=== PATIENT | female | born 1935 | race Caucasian/White ===

== ENCOUNTER 2017-09-25 11:12 | Inpatient (IN) | payer OTHER, MEDICARE ==
[2017-09-25 12:02] LABS: PLATELET COUNT 307 10^3/uL (150-400)
--- NOTE | 2017-09-25 12:05 | EDPHY ---
H & P Stated Complaint: family reports "confusion" starting 3 days ago Time Seen by Provider: 09/25/17 11:32 HPI/ROS: CHIEF COMPLAINT: Confusion Limitations: Confusion HISTORY OF PRESENT ILLNESS: 82-year-old female presents with confusion. She lives independently in her own apartment and over the last 3 days, her family has noticed gradually increasing confusion. 2 falls in the past 3 days, without apparent injury or pain. She has no complaints and tells me that she feels fine. She has had similar symptoms with prior urinary tract infection. She has been on Cipro for urinary prophylaxis since 2011. No fever and no dysuria. 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 - Physical Exam Exam: General Appearance: Alert, pleasant, smiling Eyes: Pupils equal and round, no conjunctival pallor ENT, Mouth: Mucous membranes moist Neck: Normal inspection Respiratory: Lungs are clear to auscultation Cardiovascular: Regular rate and rhythm Gastrointestinal: Abdomen is soft and nontender Neurological: Alert, oriented to person and place, nonfocal exam Skin: Warm and dry Extremities: Bilateral pedal edema Psychiatric: Mood and affect normal Constitutional: Initial Vital Signs Temperature (C) 36.8 C 09/25/17 11:16 Heart Rate 70 09/25/17 11:16 Respiratory Rate 16 09/25/17 11:16 Blood Pressure 160/61 H 09/25/17 11:16 O2 Sat (%) 94 09/25/17 11:16 O2 Delivery Mode Room Air Allergies/Adverse Reactions: No Known Allergies Allergy (Unverified 05/04/13 21:23) Home Medications: Medication Instructions Recorded Ascorbic Acid [Vitamin C 500 mg 500 mg PO DAILY 09/25/17 (*)] Aspirin EC [Aspirin EC 81 mg (*)] 81 mg PO DAILY 09/25/17 Carvedilol [Coreg (*)] 12.5 mg PO BIDMEAL 09/25/17 Ciprofloxacin HCl [Ciprofloxacin] 500 mg PO DAILY 09/25/17 Ibuprofen/Diphenhydramine Cit 2 each PO HS 09/25/17 [Advil Pm Caplet] Spironolactone [Aldactone 50 MG 50 mg PO DAILY 09/25/17 (RX)] amLODIPine BESYLATE [Amlodipine 5 mg PO DAILY 09/25/17 Besylate] Medical Decision Making - Diagnostics Imaging Results: Imaging Impressions Head CT 09/25/17 11:33 Impression: 1. Mild atrophy. 2. No acute hemorrhage, hydrocephalus, or mass effect. 3. Cerebrovascular atherosclerosis. 4. No definite acute infarct. 5. Moderate microvascular ischemic gliosis. 6. Consider MRI of the brain, if there is continued clinical concern. Findings and recommendations discussed with emergency department physician, Rita Basilio MD at 1249 hours on September 25, 2017. Final report concurs with initial preliminary interpretation. Chest X-Ray 09/25/17 12:50 Impression: 1. Mild cardiomegaly. 2. No definite pulmonary edema or pneumonia. ED Course/Re-evaluation: This patient presents with altered mental status and multiple falls. Evaluation is unremarkable, including laboratory studies, cath urinalysis, CT head and chest x-ray. Discussed with the family, they are unable to safely take her home. ED case management was involved in the patient's disposition. The patient will need to be admitted for senior living placement. Differential Diagnosis: Differential diagnosis includes urinary tract infection, pneumonia, hyponatremia , hypoglycemia, dehydration, CVA - Data Points Laboratory Results: Laboratory Results 09/25/17 11:40 09/25/17 11:40 09/25/17 09/25/17 09/25/17 11:40 11:40 11:40 WBC RBC Hgb Hct Pending MCV MCH MCHC RDW Plt Count MPV Neut % (Auto) Lymph % (Auto) [place] % (Auto) Eos % (Auto) Baso % (Auto) Nucleat RBC Rel Count Absolute Neuts (auto) Absolute Lymphs (auto) Absolute Monos (auto) Absolute Eos (auto) Absolute Basos (auto) Absolute Nucleated RBC Immature Gran % Immature Gran # ESR Pending Sodium Potassium Chloride Carbon Dioxide Anion Gap BUN Creatinine Estimated GFR Glucose Calcium Troponin I Pending C-Reactive Protein Pending Procalcitonin Pending Urine Color YELLOW Urine Appearance CLEAR Urine pH 5.0 (5.0-7.5) Ur Specific [place] 1.013 (1.002-1.030) Urine Protein 2+ H (NEGATIVE) Urine Ketones 1+ H (NEGATIVE) Urine Blood 1+ H (NEGATIVE) Urine Nitrate NEGATIVE (NEGATIVE) Urine Bilirubin NEGATIVE (NEGATIVE) Urine Urobilinogen NEGATIVE EU EU (0.2-1.0) Ur Leukocyte Esterase NEGATIVE (NEGATIVE) Urine RBC 1-3 /hpf /hpf (0-3) Urine WBC 1-3 /hpf /hpf (0-3) Ur Epithelial Cells NONE SEEN /lpf /lpf (NONE-1+) Urine Mucus TRACE /lpf /lpf (NONE-1+) Urine Glucose NEGATIVE (NEGATIVE) 09/25/17 09/25/17 11:40 11:40 WBC 15.39 10^3/uL H 10^3/uL (3.80-9.50) RBC 4.28 10^6/uL 10^6/uL (4.18-5.33) Hgb 13.0 g/dL g/dL (12.6-16.3) Hct 36.9 % L % (38.0-47.0) MCV 86.2 fL fL (81.5-99.8) MCH 30.4 pg pg (27.9-34.1) MCHC 35.2 g/dL g/dL (32.4-36.7) RDW 13.0 % % (11.5-15.2) Plt Count 307 10^3/uL 10^3/uL (150-400) MPV 9.1 fL fL (8.7-11.7) Neut % (Auto) 85.9 % H % (39.3-74.2) Lymph % (Auto) 7.6 % L % (15.0-45.0) Riley % (Auto) 5.7 % % (4.5-13.0) Eos % (Auto) 0.1 % L % (0.6-7.6) Baso % (Auto) 0.2 % L % (0.3-1.7) Nucleat RBC Rel Count 0.0 % % (0.0-0.2) Absolute Neuts (auto) 13.23 10^3/uL H 10^3/uL (1.70-6.50) Absolute Lymphs (auto) 1.17 10^3/uL 10^3/uL (1.00-3.00) Absolute Monos (auto) 0.87 10^3/uL H 10^3/uL (0.30-0.80) Absolute Eos (auto) 0.01 10^3/uL L 10^3/uL (0.03-0.40) Absolute Basos (auto) 0.03 10^3/uL 10^3/uL (0.02-0.10) Absolute Nucleated RBC 0.00 10^3/uL 10^3/uL (0-0.01) Immature Gran % 0.5 % % (0.0-1.1) Immature Gran # 0.08 10^3/uL 10^3/uL (0.00-0.10) ESR Sodium 130 mEq/L L mEq/L (135-145) Potassium 3.6 mEq/L mEq/L (3.3-5.0) Chloride 92 mEq/L L mEq/L (97-110) Carbon Dioxide 26 mEq/l mEq/l (22-31) Anion Gap 12 mEq/L mEq/L (8-16) BUN 16 mg/dL mg/dL (7-23) Creatinine 0.6 mg/dL mg/dL (0.6-1.0) Estimated GFR > 60 Glucose 109 mg/dL H mg/dL (70-100) Calcium 8.8 mg/dL mg/dL (8.5-10.4) Troponin I C-Reactive Protein Procalcitonin Urine Color Urine Appearance Urine pH Ur Specific [place] Urine Protein Urine Ketones Urine Blood Urine Nitrate Urine Bilirubin Urine Urobilinogen Ur Leukocyte Esterase Urine RBC Urine WBC Ur Epithelial Cells Urine Mucus Urine Glucose Departure - Departure Disposition: [facility] Clinical Impression: Confusion, Multiple falls Condition: Fair
[2017-09-25] MEDS ORDERED: ONDANSETRON DISINTEGRATING 4 MG TAB PO PRN (15:12)
[2017-09-25] MEDS ORDERED: ONDANSETRON 4 MG/2 ML VIAL IVP PRN (15:12)
[2017-09-25] MEDS ORDERED: ACETAMINOPHEN 325 MG TAB PO PRN (15:12)
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
--- NOTE | 2017-09-25 16:26 | ASMTLACE ---
KENA Acuity / Level of Answers: Yes Care: Did the patient have an inpatient admission? Comorbidities - select Answers: Congestive heart failure all that apply History of falls Previous myocardial infarction # of Emergency department Answers: 1-2 visits in the last 6 months Score: 10 Date Signed: 09/25/2017 04:25 PM Electronically Signed By:Jolly Carlos RN
--- NOTE | 2017-09-25 16:31 | ASMTCMCOM ---
CM Note CM Note Notes: Pt presented to the ED via EMS after she was found on the floor in her Independent Living apt at [facility] ([phone]) in [place]. Per pt's son, Kenny ([phone]), and her daughter, Nancie Almeida ([phone]), pt has been confused for the past 3 days and has had falls and difficulty walking. Pt has a walker but doesn't use it all the time. Pt does not currently have any home care assistance services. Pt admitted for confusion, falling and not being able to return home safely. This CM called the [facility] unit ([phone]) and left a voicemail for their Director, Jennifer, in hopes of getting pt admitted into an A.L. apt today. Unfortunately, they do not have the staff or ability to admit today. It is unclear whether they have an available room or not. Pt has lived in the [facility] in the past and also continue to volunteer there. Kenny and Nancie are unable to stay with the pt throughout the night and they also cannot have the patient stay w/them due to their amount of stairs and inability to assist pt if she were to fall again at home. Nancie leaves early tomorrow morning for [place] and Kenny leaves on Tuesday for vacation. Pt has another son who lives in [place]. Anticipate further workup for increased confusion and weakness, PT/OT/PEOPLESOFT evals. Hopefully pt will be able to get into [facility] Pt has been to [facility] in the past. It also appears that pt has been open with [facility] in the past (2013). Pt's PCP is Dr. Manisha Kern at [facility] ([phone]). CM to follow. Date Signed: 09/25/2017 04:30 PM Electronically Signed By:Jolly Carlos RN
--- NOTE | 2017-09-25 16:47 | PDMN ---
Medical Necessity Medical necessity: C/M review: est.> 2 for eval and TX of acute on chronic encephalopathy most likely secondary to the metabolic effects of hyponatremia as well as a possible underlying infection, acute demand ischemia as evidenced by elevated troponin, acute on chronic hyponatremia, acute elevated hypertension most likely secondary from patient not taking her home medications over the last 24 to 48 hours, secondary to encephalopathy, patient's symptoms have rendered patient unable to complete ADLs in her independent living situation, subsequent recurrent mechanical falls requiring Case Management consult, cycle cardiac enzymes, ongoing IV fluids, cardiac monitoring, acute inpt PT/OT/ST, high risk comorbid chronic systolic and diastolic CHF, underlying SIADH, history of paroxysmal atrial fibrillation, CAD, hypertension, chronic LBBB, hypothyroidism, mild to moderate aortic insufficiency, diskitis and osteomyelitis secondary to salmonella in 2014 per H/P.
[2017-09-25] MEDS: NS W/ 20 KCl/L 1,000 ML IV SCH (17:04)
[2017-09-25] MEDS: amLODIPine BESYLATE 5 MG TAB PO SCH (17:09)
[2017-09-25] MEDS: CARVEDILOL 6.25 MG TAB PO SCH (17:09)
[2017-09-25] MEDS: IBUPROFEN 200 MG TAB PO SCH ×2 (17:10→20:22)
[2017-09-25] MEDS: LIDOCAINE 4%/MENTHOL 1% PATCH TD SCH (17:10)
[2017-09-25] MEDS: diphenhydrAMINE 25 MG CAP PO SCH (20:22)
[2017-09-25] MEDS: MELATONIN 3 MG TAB PO SCH (20:22)
[2017-09-25] MEDS: PATCH REMOVAL 1 EA PATCH TD SCH (20:24)
[2017-09-26] MEDS: NS W/ 20 KCl/L 1,000 ML IV SCH (04:11)
[2017-09-26 05:12] LABS: PLATELET COUNT 287 10^3/uL (150-400)
[2017-09-26] MEDS: CARVEDILOL 6.25 MG TAB PO SCH ×2 (09:14→17:15)
[2017-09-26] MEDS: CIPROFLOXACIN 500 MG TAB PO SCH (09:14)
[2017-09-26] MEDS: ASPIRIN EC 81 MG TAB PO SCH (09:15)
[2017-09-26] MEDS: amLODIPine BESYLATE 5 MG TAB PO SCH (09:15)
[2017-09-26] MEDS: ENOXAPARIN 40 MG/0.4 ML SYR SC SCH (09:15)
[2017-09-26] MEDS: ASCORBIC ACID 500 MG TAB PO SCH (09:15)
[2017-09-26] MEDS: LIDOCAINE 4%/MENTHOL 1% PATCH TD SCH (09:16)
[2017-09-26] MEDS ORDERED: MAGNESIUM SULF 1 GM/DEXTROSE 100 ML IV ONE (09:21)
--- NOTE | 2017-09-26 15:10 | HOSPPROG ---
Hospitalist Progress Note Assessment/Plan: Assessment: 82-year-old female presents with acute on chronic encephalopathy and subsequent mechanical falls in the setting of acute on chronic hyponatremia and suspected underlying infection Plan: 1. Acute on chronic encephalopathy. Evidenced by global brain dysfunction characterized as confusion, disorientation, visual hallucinations, all of which are acute changes from patient's baseline which is very mild dementia but able to perform activities of daily living and interact normally without these impairments, most likely secondary to the metabolic effects of hyponatremia as well as possible infection -was symptomatically improving o/n, but w/ recurrent visual hallucination today -cont eval for possible infxn (w/ C/T/L spine MRI) given hx of osteo/diskitis and back pain -if negative, will get brain MRI, as these sx could be e/o evolving vascular occlusion 2. Demand ischemia. Acute, evidenced by elevated troponin, further w/u indicated. Patient denies any chest pain, has a history of left bundle branch block and coronary artery disease -NSR on tele (personally interpreted) -check Echo to r/o recent reduction in EF 3. Chronic systolic and diastolic congestive heart failure. No evidence of acute exacerbation, baseline ejection fraction is 40-45%, monitor volume status closely while getting IV fluids 4. Hyponatremia. Acute on chronic, patient has underlying SIADH per review of outside records, notably labs from 05/09/17 demonstrate most recent serum sodium level improved to 136 w/ regular consumption of salty foods at baseline, currently at 132, may be contributing to patient's hallucinations -monitor serum sodium level -cont NS -fluid restrict to 1.2, encourage solute containing fluid 5. Hypertension. Increase amlodipine, cont coreg, DC aldactone given electrolyte issues 6. Falls. Mechanical, most likely secondary to weakness secondary to conditions outlined above -currently has no evidence of acute trauma other than ecchymoses Diet. Regular Prophylaxis. High risk patient Lovenox 40 Code. Full at present, patient has historically been a DNR DNI, the patient is currently voicing that she would like to be full code after experiencing the trauma of the of a grandson approximately 8 months ago, her son Kenny is her MD POA Disposition. Anticipated date of discharge 09/27, pending stabilization of above Subjective: MORE ENERGY today, visual hallucinations, drinking lots of water Objective: Vital Signs Temp Pulse Resp BP Pulse Ox 36.4 C 46 L 17 113/49 L 94 09/26/17 12:00 09/26/17 12:00 09/26/17 12:00 09/26/17 12:00 09/26/17 12:00 Microbiology 09/25/17 17:15 Respiratory Panel (PCR) - Final Nasal, Sinus - Swab No Organism Detected Laboratory Results 09/26/17 04:39 09/26/17 05:39 09/25/17 09/26/17 09/27/17 05:59 05:59 05:59 Intake Total 1643 300 Output Total 715 Balance 928 300 - Physical Exam Constitutional: no apparent distress, not in pain, other (aged appearing), No uncomfortable Cardiovascular: systolic murmur (I/ at sternum), No irregularly irregular, No tachycardia, No edema Respiratory: no respiratory distress, no rales or rhonchi, clear to auscultation Gastrointestinal: normoactive bowel sounds, soft, non-tender abdomen, no palpable masses, No distension Skin: other (ecchymotic spots on RUE), No rash Musculoskeletal: other (mild tenderness in lumbar spine w/ vert body lower thoracic/lumbar removal) Neurologic: AAOx3, sensation intact bilaterally, No weakness, No facial droop Psychiatric: not anxious, thought process linear, flat affect, other (visually hallucinating, concentration 7/7), No agitated ICD10 Worksheet Patient Problems: Problems Problem Status Onset Nausea and vomiting Acute LBBB (left bundle branch block) Acute Cardiomyopathy Acute Coronary arteriosclerosis Acute Confusion Acute Multiple falls Acute
[2017-09-26] MEDS ORDERED: amLODIPine BESYLATE 5 MG TAB PO SCH (15:12)
--- NOTE | 2017-09-26 16:39 | ASMTCMCOM ---
CM Note CM Note Notes: PT/OT/[facility] rec HHC, pt requests [facility] and specifically a worker named Bailee. Pt son Kenny present and provides CM with [facility] [place]. Pt has a spot reserved in [place] at [facility] in case it is needed at d/c. Pt son thinks a temporary [facility] d/c may be best since he is leaving [facility] Tuesday. CM to follow. D/c plan of care: Pt will return to [facility] either to her own home with [facility] or the [place] Date Signed: 09/26/2017 04:38 PM Electronically Signed By:JOSE ALFREDO Tamayo
--- NOTE | 2017-09-26 17:56 | ECHO ---
[email or web address] [address] [address] Main: [phone] Fax: Transthoracic Echocardiogram Name: MIGUEL EDWARDS MR#: [id number] Study Date: 09/26/2017 Study Time: 10:59 AM Date of : 1935 Age: 82 year(s) Height: 172.7 cm (68 in.) Weight: 83.92 kg (185 lb.) BSA: 1.98 m2 Gender: Female Examination: Echo Indication: Elevated trop Image Quality: Adequate Contrast: Requested by: Juaquin De La Rosa BP: 172 mmHg/57 mmHg Heart Rate: Rhythm: Indication: Elevated trop Procedure Staff Primary Products Inspectors: Estephania Anderson [facility] Reading Physician: Radha Leija MD Requesting Provider: Conclusions: Normal size left ventricle. Mild concentric LV hypertrophy. Low normal left ventricular systolic function. EF is 52 %. No regional wall motion abnormality. Grade 2 diastolic dysfunction (pseudonormalized LV filling pattern). Elevated left ventricular filling pressures.. Normal size right ventricle. Normal RV function. The left atrium is mildly to moderately dilated. The right atrium is mildly dilated. Moderate mitral valve regurgitation is present. Moderate aortic valve regurgitation is present. Moderate tricuspid regurgitation is present. Right ventricular systolic pressure measures 49mmHg. Compared with 05/01/2013 atria are more dilated tricuspid regurgitation has progressed and pulmonary hypertension is not present. Aortic regurgitation has progressed. Measurements: Chambers Valvular Assessment AV/MV Valvular Assessment TV/PV Normal Normal Normal Name Value Range Name Value Range Name Value Range Ao Loly (2D): 2.0 cm (1.4 cm-2.6 AV Vmax: 1.60 m/s (1 m/s-1.7 TR Vmax: 3.33 mm/s ( - ) cm) m/s) TR PGmax: 44 mmHg ( - ) IVSd (2D): 1.2 cm (0.6 cm-1.1 AV maxP mmHg ( - ) syst. PAP: 49 mmHg ( - ) cm) AV meanP mmHg ( - ) PV Vmax: 0.95 m/s (0.6 m/s-0.9 LVDd (2D): 4.5 cm (3.9 cm-5.3 [place] (VTI): 1.3 cm ( - ) m/s) cm) MV E Vmax: 1.01 m/s ( - ) PV PGmax: 4 mmHg ( - ) Patient: MIGUEL EDWARDS Study Date: 09/26/2017 Page 1 of 3 10:59 AM LVDs (2D): 3.5 cm (2.1 cm-4 MV A Vmax: 0.93 m/s ( - ) cm) MV E/A: 1.09 ( - ) LVPWd (2D): 1.1 cm ( - ) MV PHT: 0.090 s ( - ) LVOTd 1.6 cm 1.6 cm mm MVA (PHT): 2.4 s ( - ) LVEF (BP): 52 % (>=55 %) RVDd(2D): 3.1 cm (1.9 cm-3.8 cmmm) Continued Measurements: Chambers Valvular Assessment AV/MV Valvular Assessment TV/PV Name Value Name Value Name Value LADs: 4.0 cm MV Annulus: 4.0 cm CVP (est.): 5 mmHg LADs Lon.2 cm MV DecTime: 310 m/s LA Area: 24.9 cm2 MV E' Septal: 0.05 m/s LA Volume: 83 ml MV E/E' Septal: 19.90 LA Volume Index: 41.9 ml/m2 MV E/E' Lateral: 12.80 RA Area: 19.6 cm2 MR ERO: 0.420 cm2 MR PISA radius: 10 mm MR Reg. Volume: 95 ml Additional Vessels Name Value Ao Ascendin.3 cm Inferior Vena Cava: 1.0 cm Findings: Left Ventricle: Normal size left ventricle. Mild concentric LV hypertrophy. Low normal left ventricular systolic function. EF is 52 %. No regional wall motion abnormality. Grade 2 diastolic dysfunction (pseudonormalized LV filling pattern). Elevated left ventricular filling pressures.. Right Ventricle: Normal size right ventricle. Normal RV function. Left Atrium: The left atrium is mildly to moderately dilated. Right Atrium: The right atrium is mildly dilated. Mitral Valve: The mitral valve is normal in appearance and function. Moderate mitral valve regurgitation is present. No mitral stenosis is present. Aortic Valve: The aortic valve is tri-leaflet. Moderate aortic valve regurgitation is present. No aortic valve stenosis is present. Tricuspid Valve: The tricuspid valve is normal in appearance and function. Moderate tricuspid regurgitation is present. Right ventricular systolic pressure measures 49mmHg. The pulmonary artery pressure is mild to moderately increased. Pulmonic Valve: The pulmonic valve is normal in appearance and function. There is no pulmonic regurgitation seen. Aorta: The aorta is normal. Normal size aortic root measuring 2.0 cm. Normal size ascending aorta measuring 2.3 cm. IVC: The IVC is normal sized. Pericardium: No pericardial effusion. No pleural effusion. Patient: MIGUEL EDWARDS Study Date: 09/26/2017 Page 2 of 3 10:59 AM (No Signature Object) Patient: MIGUEL EDWARDS Study Date: 09/26/2017 Page 3 of 3 10:59 AM [id number]
[2017-09-26] MEDS ORDERED: GADOBUTROL 10 ML VIAL IVP ONE (20:15)
[2017-09-26] MEDS: diphenhydrAMINE 25 MG CAP PO SCH (22:10)
[2017-09-26] MEDS: MELATONIN 3 MG TAB PO SCH (22:10)
[2017-09-26] MEDS: PATCH REMOVAL 1 EA PATCH TD SCH (22:10)
[2017-09-26] MEDS: IBUPROFEN 200 MG TAB PO SCH (22:10)
[2017-09-27 20:52] LABS: PLATELET COUNT 162 10^3/uL (150-400)
[2017-09-27] MEDS: MELATONIN 3 MG TAB PO SCH (20:55)
[2017-09-27] MEDS: PATCH REMOVAL 1 EA PATCH TD SCH (20:55)
[2017-09-27] MEDS: IBUPROFEN 200 MG TAB PO SCH (20:55)
[2017-09-27] MEDS: diphenhydrAMINE 25 MG CAP PO SCH (20:55)
--- NOTE | 2017-09-27 22:29 | GCON ---
[f rep st] CONSULTATION NEUROLOGY CONSULTATION REFERRING PHYSICIAN: Juaquin De La Rosa MD HISTORY: The patient is an 82-year-old woman who I am asked to see in neurologic consultation regard ing some mild confusion and visual hallucinations. The history is obtained from reviewing the medica l records as well as discussions with the family and the patient. Basically, she has been a relative ly independent person without significant neurologic issues. In the past, she has had a tendency tow kathleen visual hallucinations which are nonthreatening in the setting of being very tired or having infec tion. She has been independent and had a cognitive capacity which is basically normal, according to the family, the vast majority of time. She might be slightly forgetful, but truly has been relativel y independent, except for the physical limitations that were a result of some of her spinal problems. In any case, over the last month there has been a little more but challenge with her cognitive skills and mild confusion, and then over the last several days there have been periods where there could be some nonthreatening visual hallucinations for which she cannot really distinguish normal versus not normal. Her son says this is more common in the afternoon and certainly has some association with be ing fatigued. Thus far, no obvious infectious source has been identified. She is not having focal n umbness or weakness. No seizure activity has been described. They tell me right now that she is at her baseline cognitively. PAST MEDICAL HISTORY: Notable for paroxysmal atrial fibrillation, coronary disease, hypertension, mi ld aortic insufficiency, hypothyroidism, diskitis with osteomyelitis in 2014, SIADH, partial colectom y, back surgery. FAMILY HISTORY: Colon cancer. SOCIAL HISTORY: No smoking or alcohol. She is utilizing a walker and living independently, but is p robably going to move to assisted living environment. MEDICATIONS: On admission: Vitamin C, aspirin 81 mg daily, Coreg, Cipro for chronic suppression of UTI, ibuprofen, spironolactone, amlodipine. ALLERGIES: No known drug allergies. REVIEW OF SYSTEMS: Negative for fever, chills, nausea, vomiting, or diarrhea. No chest pain, palpit ations, shortness of breath. PHYSICAL EXAM: VITAL SIGNS: Temperature of 37, blood pressure is 140/86, pulse of 70, respirations 16. GENERAL: She is lying in the bed in a Trendelenburg position. She appears comfortable. She de leon s edematous distal lower extremities with trophic skin changes. There are no signs of hallucinations currently. NEUROLOGICAL: She is fully oriented and able to follow commands appropriately. Pupils are 2 mm and reactive. Extraocular movements are intact. Normal facial sensation and strength. Hea ring is preserved. Motor exam normal muscle bulk and tone, 5/5 strength and no abnormal movements. Sensation is preserved for temperature and light touch. No bradykinesia. Reflexes 1+. DIAGNOSTICS: Brain MRI shows a ependymoma which is something the family has been aware of in the past, and looks benign in the left lateral ventricle. There is no evidence of acute stroke or hemorrhage. All of the spinal imaging reveals no evidence of active infection. IMPRESSION: Today a 70-minute total unit time was devoted predominantly to counseling and coordinati on of care and review of her visit with the family, and discussions about the strategies moving forwa rd. For now, I think this is a mild problem of an encephalopathy that occurs in the setting of dehyd ration, sleep deprivation, and perhaps an occult infection, but is not occurring actively. She is no t in the state of an acute delirium right now. They confirmed that she is currently at her baseline cognitively. She has had some tendency toward this in the past and I do not find evidence of a prima ry neuro degenerative disease such as Lewy body dementia, so it is hard to be any more specific in e neurologic opinion beyond a mild encephalopathy. At this point, she can be monitored as an outpati ent, and when she is stabilized medically, then seems appropriate to do an assisted living setting. I am available for further questions as they arise. /[id number]/MODL
--- NOTE | 2017-09-27 22:30 | GCON ---
[f rep st] CONSULTATION CARDIOLOGY CONSULTATION DATE OF CONSULTATION: 09/27/2017 PRIMARY CONSTRUCTION STONEMASON: Joselo Gray MD PRIMARY CARE PHYSICIAN: Manisha Kern MD CHIEF COMPLAINT: Orthostasis and minimally positive troponin. HISTORY OF PRESENT ILLNESS: We were asked by Dr. De La Rosa to visit with Taty. 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 She lives in an independent living facility and generally does quite well. She was admitted yesterday through the ER with 2 falls over 2 days and confusion. She was found to be mi ldly hyponatremic with suspicion for underlying infection. We were asked to consult because she had a significant drop in her blood pressure this morning despite being quite hypertensive in the ER and her troponin was minimally elevated. Upon my evaluation, she does not recall her 2 separate falls at home. She does not remember having a ny sort of cardiovascular symptoms in the past several days. Presently, she is not having chest pain , dyspnea, palpitations. She does have chronic but stable bilateral lower extremity edema. REVIEW OF SYSTEMS: A full 10-point review of systems was performed and is negative except that which is outlined in the history of present illness. OUTPATIENT MEDICATIONS: Reviewed and not repeated here. SOCIAL HISTORY: The patient has a son who is involved in her care, and he is at the bedside. She li ves in an independent living in [place]. FAMILY HISTORY: Not applicable to the current case. PHYSICAL EXAMINATION: VITAL SIGNS: When I am in the room, her blood pressure is 177/90. I do not h ave access to her full vital signs as [facility] is down. Heart rate is in the 50s. Her telemetry has revealed sinus rhythm with left bundle branch block. GENERAL: Well-appearing older female in no ac upper [place] distress. NECK: JVP less than 10. Regular rate and rhythm with soft early systolic murmur at t he left lower sternal border. No rub or gallop. LUNGS: Clear without wheeze, rhonchi, or rales. A BDOMEN: Soft, nontender, nondistended without bruits, masses, or hepatosplenomegaly. EXTREMITIES: Warm and well perfused with minimal bilateral ankle edema. No cyanosis or clubbing. NEUROLOGIC: Sh e is alert and oriented, but does not recall the events leading up to admission. No gross focal neur ologic deficits. LABORATORY DATA: CBC is normal. Comprehensive metabolic panel shows a sodium of 127, total protein low at 6, albumin low at 3.2, calcium therefore low at 8.3. Otherwise normal. Troponin early yesterday morning was 0.067. TSH normal. Magnesium low at 1.5. Her initial troponin was 0.087. EKG: Sinus rhythm with left bundle branch block. Echocardiogram reviewed by me: Normal LV size and systolic function without regional wall motion abn ormality, [id number] aortic regurgitation, bzyssdrr-pz-andzbm mitral regurgitation. ASSESSMENT AND PLAN: An 82-year-old female with hypertension, paroxysmal atrial fibrillation, mild d ementia, now admitted status post 2 falls at home with encephalopathy. Ongoing evaluation for source of infection. It appears that she has not been taking her medications for a couple of days as well as she was quite hypertensive in the ER. 1. Hypertension: She got medications this morning and dropped her pressure precipitously. I would add back medications at half doses and monitor. Her ejection fraction is normal, and I do not think that her valvular disease necessarily explains this drop in blood pressure. She is currently not hav ing chest pain or shortness of breath. 2. Minimally elevated troponin: She is quite hypertensive which can explain her minimally elevated troponin. Left bundle branch block is old, and therefore, her EKG is not interpretable for ischemia. No angina. Continue medical management. Would add aspirin if she is not on this. 3. Valvular heart disease: She does have baao-vt-xcsbvpdo aortic and ngzivwsn-xp-xuidoc mitral regu rgitation. Follow as an outpatient. She does not appear to be in heart failure now. 4. History of paroxysmal atrial fibrillation: Currently in sinus rhythm. I do not believe she is o n chronic anticoagulation, likely due to her fall risk and she has now had 2 falls. Would add aspiri n if she is not on it as detailed above. Thank you for this consult. We will follow with you. I do not think she needs any stress testing at this time, but just careful blood pressure management. /[id number]/MODL
[2017-09-28] MEDS: LIDOCAINE 4%/MENTHOL 1% PATCH TD SCH ×2 (07:31→07:53)
[2017-09-28] MEDS: ASCORBIC ACID 500 MG TAB PO SCH ×2 (07:31→07:50)
[2017-09-28] MEDS: ASPIRIN EC 81 MG TAB PO SCH ×2 (07:31→07:51)
[2017-09-28] MEDS: CIPROFLOXACIN 500 MG TAB PO SCH ×2 (07:31→07:51)
[2017-09-28] MEDS: ENOXAPARIN 40 MG/0.4 ML SYR SC SCH ×2 (07:31→07:49)
[2017-09-28] MEDS: CARVEDILOL 6.25 MG TAB PO SCH ×2 (07:31→07:50)
[2017-09-28 08:52] VITALS: BP 142/43
[2017-09-28] MEDS ORDERED: amLODIPine BESYLATE 5 MG TAB PO SCH (09:00)
--- NOTE | 2017-09-28 12:19 | PDIAF ---
- Diagnosis Diagnosis: Falls, Acute on Chronic hyponatremia Code Status: Full Code - Medication Management Discharge Medications: Medications to Continue on Transfer Ascorbic Acid [Vitamin C 500 mg (*)] 500 mg PO DAILY 09/25/17 [Last Taken Unknown] Aspirin EC [Aspirin EC 81 mg (*)] 81 mg PO DAILY 09/25/17 [Last Taken Unknown] Carvedilol [Coreg (*)] 12.5 mg PO BIDMEAL 09/25/17 [Last Taken Unknown] Ciprofloxacin HCl [Ciprofloxacin] 500 mg PO DAILY 09/25/17 [Last Taken Unknown] Ibuprofen/Diphenhydramine Cit [Advil Pm Caplet] 2 each PO HS 09/25/17 [Last Taken Unknown] amLODIPine BESYLATE [Amlodipine Besylate] 5 mg PO DAILY 09/25/17 [Last Taken Unknown] Acetaminophen [Tylenol 325mg (*)] 650 mg PO Q4HRS PRN tab 09/28/17 [Last Taken Unknown] Lidocaine 4%/Menthol 1% [Icy Hot Lidocaine/Menthol 4%/1% Patch (*)] 1 patch TD DAILY #30 patch 09/28/17 [Last Taken Unknown] Patch Removal 1 ea TD DAILY21 #0 patch 09/28/17 [Last Taken Unknown] Group Home Antibiotics: Cipro 500mg PO bid for chronic UTI suppression Discharge Medications: Refer to the Discharge Home Medication list for PRN reason. PICC Care - Routine: N/A - Orders Services needed: Home Care, Registered Nurse, Physical Therapy, Occupational Therapy Home Care Face to Face: I certify that this patient was under my care and that I had the required oizm-hb-kyji encounter meeting the encounter requirements on the discharge day. My findings support the fact that the patient is homebound as defined in Home Care Face to Face Continued: CMS Chapter 7 Medicare Benefits Manual 30.1.1 , The condition of the patient is such that there exists a normal inability to leave home and consequently, leaving home would require a considerable and taxing effort. Isolation Type: None Oxygen: NA Diet Recommendation: fluid restriction (use comment for amount) (1.5L/day, try to drink electrolyte containing fluids) Weigh Patient: daily Activity/Weight Bearing Restrictions: as tolerated - Labs/Radiology BMP Date: 10/03/17 CBC w/diff Date: 10/03/17 Call or Fax Lab and Imaging Results to: Dr. Gray and Dr. Kern - Follow Up Care Current Providers and Referrals: Manisha Kern MD [Primary Care Provider] - As per Instructions Joselo Gray MD [Medical Doctor] - 3-5 days
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
--- NOTE | 2017-09-28 16:53 | ASDISCHSUM ---
Discharge Information Plan Status:Home with Home Health Medically Cleared to Leave: Discharge Date:09/28/2017 12:58 PM CM D/C Disposition:Home Health Service ADT D/C Disposition:Home Health Service Projected Discharge Date:09/27/2017 11:00 AM Transportation at D/C:Family Discharge Delay Reason: Follow-Up Date:09/27/2017 11:00 AM Discharge Slot: Final Diagnosis: Placement Information Referral Type:*Home Health Care Services Referral ID:[id number] Provider Name:[facility] Address 1:[address] [facility] Phone Number: Address 2: Fax Number: City:[place] Selection Factors: State:[place] Patient Contact Information Contact Name:JOSIAH Relationship:Son Address:[address] Work Phone: [facility] Phone: [facility] Code:[place] [address] Email: Financial Information Financial Class:Medicare Primary Plan Desc:MEDICARE INPATIENT Primary Plan Number:[id number] Secondary Plan Desc:AARP/MDR SUPPLEMENT Secondary Plan Number:[id number] Assessment Information [facility] CM Progress Note CM Note CM Note Notes: Pt presented to the ED via EMS after she was found on the floor in her Independent Living apt at [facility] ([phone]) in [place]. Per pt's son, Kenny ([phone]), and her daughter, Nancie Almeida ([phone]), pt has been confused for the past 3 days and has had falls and difficulty walking. Pt has a walker but doesn't use it all the time. Pt does not currently have any home care assistance services. Pt admitted for confusion, falling and not being able to return home safely. This CM called the [facility] unit ([phone]) and left a voicemail for their Director, Jennifer, in hopes of getting pt admitted into an A.L. apt today. Unfortunately, they do not have the staff or ability to admit today. It is unclear whether they have an available room or not. Pt has lived in the [facility] in the past and also continue to volunteer there. Kenny and Nancie are unable to stay with the pt throughout the night and they also cannot have the patient stay w/them due to their amount of stairs and inability to assist pt if she were to fall again at home. Nancie leaves early tomorrow morning for [place] and Kenny leaves on Tuesday for vacation. Pt has another son who lives in [place]. Anticipate further workup for increased confusion and weakness, PT/OT/DRILLER'S ASSISTANT shikha. Hopefully pt will be able to get into [facility]. Pt has been to [facility] in the past. It also appears that pt has been open with [facility] in the past (2013). Pt's PCP is Dr. Manisha Kern at [facility] ([phone]). CM to follow. Date Signed: 09/25/2017 04:30 PM Electronically Signed By:Jolly Carlos RN LACE LACE Acuity / Level of Answers: Yes Care: Did the patient have an inpatient admission? Comorbidities - select Answers: Congestive heart failure all that apply History of falls Previous myocardial infarction # of Emergency department Answers: 1-2 visits in the last 6 months Score: 10 Date Signed: 09/25/2017 04:25 PM Electronically Signed By:Jolly Carlos RN [facility] CM Progress Note CM Note CM Note Notes: PT/OT/DRILLER'S ASSISTANT rec [facility], pt requests [facility] and specifically a worker named Bailee. Pt son Kenny present and provides CM with [facility] bryanna. Pt has a spot reserved in [place] at [facility] in case it is needed at d/c. Pt son thinks a temporary [place] d/c may be best since he is leaving [facility] Tuesday. CM to follow. D/c plan of care: Pt will return to [facility] either to her own home with [facility] or the [place] Date Signed: 09/26/2017 04:38 PM Electronically Signed By:JOSE ALFREDO Tamayo [facility] CM Progress Note CM Note CM Note Notes: Pt medically stable for d/c to [facility] and with [facility] PT/OT/RN. Orders sent to [facility] in [employer]. Pt [facility] signed by and faxed to [facility]. Pt family to transport home. Date Signed: 09/28/2017 04:52 PM Electronically Signed By:JOSE ALFREDO Tamayo Intervention Information Intervention Type:*IM-Signed Date of Service:09/28/2017 12:32 PM Patient Type:Inpatient Staff Member:Kennedi Contreras Hours: Discipline: Severity: Comment:
--- NOTE | 2017-09-28 16:53 | ASMTCMCOM ---
CM Note CM Note Notes: Pt medically stable for d/c to [facility] and with [facility] PT/OT/RN. Orders sent to [facility] in [employer]. Pt [place] signed by and faxed to [facility]. Pt family to transport home. Date Signed: 09/28/2017 04:52 PM Electronically Signed By:JOSE ALFREDO Tamayo
--- NOTE | 2017-09-28 18:40 | HOSPPROG ---
Hospitalist Progress Note Assessment/Plan: This note is from an encounter dated on 09/26/17, with the original progress note lost as a result of [employer] downtime. Assessment: 82-year-old female presents with acute on chronic encephalopathy and subsequent mechanical falls in the setting of acute on chronic hyponatremia and hypotension Plan: Patient experienced acute hypotension this morning with a systolic blood pressure in the 80s, responded to Trendelenburg positioning and her blood pressure went back up to the 130s, then reoccurred in the 80s when she was sat upright. Patient was placed in Trendelenburg again, I evaluated her and she demonstrated some slowed cognition, felt symptomatically dizzy, and I administered 1 L normal saline bolus with improvement of her blood pressure back up into the 130s. The nurse then set the patient up comma performed orthostatics which were negative, and the patient was seen in consultation by Cardiology. The patient received her home dosage of carvedilol, but amlodipine was held. Her serum sodium level was 127 and outside of the 1 L normal saline bolus, I stopped her remaining IV fluids. I counseled the patient extensively regarding fluid intake, encouraging her to increase her solute containing fluids, and restrict her free water. I tightened her fluid restriction to 1.0 L, and counseled the patient that should she experience any recurrent lightheadedness or presyncopal symptoms, she should notify her nurse immediately. I counseled her that we would require 24 hr of additional monitoring to ensure that she did not experience any recurrent hypotension and I counseled her son that we would continue with the plan for discharge to assisted living facility tomorrow depending on how events proceeded over the next 24 hr. Subjective: Patient with near syncope this morning and hypotension Objective: Vital Signs Temp Pulse Resp BP Pulse Ox 36.8 C 55 L 18 142/43 H 93 09/28/17 07:27 09/28/17 07:50 09/28/17 07:27 09/28/17 08:48 09/28/17 07:27 Laboratory Results 09/27/17 04:28 09/28/17 09:21 09/27/17 09/28/17 09/29/17 05:59 05:59 05:59 Intake Total 300 200 Output Total 300 750 Balance 0 -550 - Time Spent With Patient Time Spent with Patient: greater than 35 minutes Time Spent with Patient: Greater than 35 minutes spent on this patients care, greater than 50% of time spent counseling, educating, and coordinating care regarding the above mentioned plan. - Physical Exam Constitutional: no apparent distress, appears nourished, not in pain Cardiovascular: regular rate and rhythym, no murmur, rub, or gallop, edema ( Trace bilateral lower extremities) Neurologic: sensation intact bilaterally, No AAOx3 (Alert awake oriented x2 to person and place), No weakness (Motor strength 5/5 bilateral lower extremities) Psychiatric: thought process linear, poor memory, No anxious, No agitated ICD10 Worksheet Patient Problems: Problems Problem Status Onset Cardiomyopathy Acute Confusion Acute Coronary arteriosclerosis Acute LBBB (left bundle branch block) Acute Multiple falls Acute Nausea and vomiting Acute
--- NOTE | 2017-09-28 18:54 | PDDCSUM ---
Discharge Summary Discharge Summary: DISCHARGE SUMMARY FOLLOW-UP ITEMS: Repeat serum sodium level and CBC next week DATE OF ADMISSION: 09/25/2017 DATE OF DISCHARGE: 09/28/2017 DISCHARGE DIAGNOSES: 1. Acute on chronic encephalopathy 2. Acute demand ischemia 3. Chronic systolic and diastolic congestive heart failure 4. Acute on chronic hyponatremia 5. Acute on chronic hypertension 6. Acute mechanical falls 7. Acute orthostatic hypotension CONSULTATIONS: Cardiology PROCEDURES / IMAGING: Echocardiogram demonstrating ejection fraction 52%, diastolic dysfunction Brain MRI demonstrating incidental ventricular subependymoma but no CVA Cervical, thoracic, lumbar spine demonstrating no evidence of persistent osteomyelitis, previous surgery, degenerative disc disease CHIEF COMPLAINT: Acute fall, encephalopathy SUBJECTIVE: Patient is feeling well at time of discharge, she is requesting that she be discharged PHYSICAL EXAM ON DISCHARGE: Systolic blood pressure is 140-200, systolic blood pressure 50 to 60, afebrile overnight, satting well on room air, alert awake oriented x3, no apparent distress, pain level 0/10 Cardiac: Lower extremities demonstrate 1+ bilateral edema, heart rhythm is regular with 1/6 murmur at the apex Skin: Patient has [place] appearing bilateral lower extremities with stasis dermatitis but no erythema or ulcerations LABS ON DISCHARGE: Serum sodium 131 HOSPITAL COURSE BY PROBLEM: 1. Acute on chronic encephalopathy. Evidenced by global brain dysfunction characterized as confusion, disorientation, visual hallucinations, all of which are acute changes from the patient's baseline which is very mild dementia with ability to perform activities of daily living and interact normally without these impairments. He was initially perceived that these acute changes were secondary to possible infection her, but after infection was thoroughly evaluated and was ruled out, it seemed more consistent with acute on chronic hyponatremia and potential hypertensive symptoms as well. The patient's son felt like her mental status returned to her baseline and she is safe for discharge home. She had a brain MRI ruling out any structural or vascular cause of her symptoms and she is being transition to assisted living at the time of discharge. 2. Acute demand ischemia. Evidenced by elevated troponin level and no focal wall motion abnormalities on echocardiogram. Patient seen in consultation by Dr. Radha Leija, who advised that the patient's demand ischemia was most likely secondary to intermittent acute elevations in her blood pressure and resulting cardiac strain, rather than a primary cardiac event. She did not recommend further cardiac risk stratification at this time. 3. Chronic systolic and diastolic congestive heart failure. Patient had no evidence of acute exacerbation but she did experience some increased lower extremity edema with IV fluid administration. I recommend the patient be weighed daily and that she have outpatient follow-up with her observation nurse next week to ensure that she does not have any other fluid accumulation. 4. Acute on chronic hyponatremia. This is the most likely cause of the patient' s transient encephalopathy with some visual hallucinations as well as some of her gait instability. Her serum sodium level was 130 on presentation and her most recent outpatient lab value was 136. The patient is able to maintain a normal serum sodium level in the setting of SIADH with regular consumption of salty foods at baseline. Although consuming salty foods does worsen her hypertension, it is safely maintaining a normal serum sodium level which seems to be protective measure for the patient. The patient received IV normal saline with initial improvement in her serum sodium level, and then decline down to 127, as she had most likely been completely volume repleted and was experiencing inappropriate retention of fluid with her ongoing IV normal saline. Consequently, her normal saline was discontinued, she was placed on a tight fluid restriction, and her serum sodium level improved from 127->131 at time of discharge. We advise the patient that she should continue her home strategy of eating salty foods and also maintain a fluid restriction at home of 1.5 L. I recommended that she utilize solute containing fluids at home. 5. Acute on chronic hypertension. The patient experienced acute on chronic hypertension with systolic blood pressures up to the 200s, and these elevated values may somewhat contribute to her visual hallucinations as well as intermittent encephalopathy. That being said, the patient is high risk for orthostatic hypotension, most likely secondary to age-related vascular calcifications. She did experience significant orthostasis with systolic blood pressures down to the 80s, and some of her home antihypertensives were temporarily held. We did permanently discontinue her Aldactone given her electrolyte challenges, and continued her carvedilol and amlodipine at her home dosages. Given the patient's risk of hypotension, we do not recommend over medication with higher doses of these agents. We recommend that she follow up with her primary observation nurse next week and keep a blood pressure log. 6. Mechanical falls. Acute, most likely secondary to weakness secondary to a combination of the issues outlined above, the patient has voluntarily transition to assisted living and will receive home care as well. DISCHARGE MEDICATIONS: Please see official discharge medication reconciliation sheet in chart , continue home medications with the only discontinuation being Aldactone. DISCHARGE INSTRUCTIONS: Please follow up with observation nurse next week, please have labs performed prior to that appointment. TIME SPENT: Greater than 30 minutes were spent on direct patient care, as well as discharge planning and preparation.
[2017-09-29] MEDS ORDERED: amLODIPine BESYLATE 5 MG TAB PO SCH (09:00)
== END 2017-09-28 12:58 | disposition home health service (06) | DRG 71 ==
LOC: F3N 15:40
PROVIDERS: ADMIT Internal Medicine; ATTEND Internal Medicine
DX: G93.40 Encephalopathy, unspecified (principal); E87.1 Hypo-osmolality and hyponatremia; I95.1 Orthostatic hypotension; I50.42 Chronic combined systolic (congestive) and diastolic (congestive) heart failure; I24.8 Other forms of acute ischemic heart disease; I08.0 Rheumatic disorders of both mitral and aortic valves; I10 Essential (primary) hypertension; I48.0 Paroxysmal atrial fibrillation; I25.10 Atherosclerotic heart disease of native coronary artery without angina pectoris; E03.9 Hypothyroidism, unspecified; Z91.81 History of falling; Z87.440 Personal history of urinary (tract) infections; Z96.619 Presence of unspecified artificial shoulder joint; Z96.669 Presence of unspecified artificial ankle joint; Z96.698 Presence of other orthopedic joint implants
CPT/HCPCS: 92507-GN; 92523-GN; 97116-GP; 97161-GP; 97165-GO; 97535-GO; A9585; G0515-GN; G8978-GP-CJ; G8979-GP-CI; G8987-GO-CI; G8988-GO-CI; G9165-GN-CJ; G9166-GN-CI; G9167-GN-CI; J1650; J3475